=== PATIENT | male | born 1960 | race African-American/Black ===

== ENCOUNTER 2024-08-28 16:14 | Emergency (ER) | payer OTHER ==
[2024-08-28 16:23] VITALS: RESP 16; TEMP 98.1; BMI 28.2
[2024-08-28 16:55] LABS: BASO % 0.4 % (0-2.0); EOS % 1.3 % (0-4.5); HEMATOCRIT 47.6 % (35.4-49); HEMOGLOBIN 15.8 GM/dL (11.7-16.9); LYMPH % 30.9 % (8-40); MCH 29.1 pg (25.7-33.7); MCHC 33.1 g/dl (32.0-35.9); MEAN CELL VOLUME 87.7 fl (80-96); MEAN PLT VOLUME 6.3 fl (7.5-11.1); MONO % 7.6 % (3.8-10.2); NEUT % 59.8 % (42.8-82.8); PLATELET COUNT 177 10^3/uL (134-434); RBC 5.43 M/mm3 (4.00-5.60); RDW 13.7 % (11.9-15.9)
[2024-08-28 17:15] LABS: PH,URINE 5.5 (5.0-8.0); URINE APPEARANCE CLEAR; URINE BILIRUBIN NEGATIVE (NEGATIVE); URINE COLOR YELLOW; URINE GLUCOSE (UA) NEGATIVE (NEGATIVE); URINE KETONE NEGATIVE (NEGATIVE); URINE LEUK ESTERASE NEGATIVE (NEGATIVE); URINE NITRITE NEGATIVE (NEGATIVE); URINE PROTEIN NEGATIVE (NEGATIVE); URINE UROBILINOGEN 0.2 mg/dL (0.2-1.0)
[2024-08-28 17:15] LABS: INR 1.22 (0.83-1.09); POTASSIUM 3.8 mmol/L (3.5-5.1); PROTHROMBIN TIME (PATIENT) 13.9 SEC (9.7-13.0)
[2024-08-28 17:17] LABS: ALBUMIN 3.9 g/dl (3.4-5.0)
[2024-08-28 17:18] LABS: ACTIVATED PTT 33.4 SECONDS (25.2-36.5); BLOOD UREA NITROGEN 11.7 mg/dL (7-18); CALCIUM 9.9 mg/dL (8.5-10.1)
[2024-08-28 17:21] LABS: CREATININE 0.9 mg/dL (0.55-1.3)
[2024-08-28 17:22] LABS: PHOSPHOROUS 2.8 mg/dL (2.5-4.9); TOT PROT 7.3 g/dl (6.4-8.2)
[2024-08-28 17:23] LABS: BILIRUBIN,TOTAL 0.8 mg/dL (0.2-1)
[2024-08-28] MEDS ORDERED: amLODIPine BESYLATE 5 MG TABLET (FP) ONE (18:07)
[2024-08-28] MEDS: amLODIPine BESYLATE 5 MG TABLET (FP) PO ONE (18:15)
[2024-08-28 19:30] VITALS: BP 157/104; PULSE 97
== END 2024-08-28 19:49 | disposition home or self-care (01) ==
LOC: JER 16:14
DX: R47.81 Slurred speech (principal); R25.1 Tremor, unspecified; R29.898 Other symptoms and signs involving the musculoskeletal system; I10 Essential (primary) hypertension; R53.81 Other malaise; Z20.822 Contact with and (suspected) exposure to COVID-19
CPT/HCPCS: 0241U-QW; 36415; 70450-TC; 71045-TC-FY; 80053; 80061; 81003; 82962; 83036; 83605; 83735; 84100; 84484; 85025; 85610; 85730; 87086; 93005; 93010; 99285-25